=== PATIENT | male | born 1975 | race African-American/Black ===

== ENCOUNTER 2016-08-26 00:25 | Inpatient (IN) | payer OTHER ==
[~2016-08-26] VITALS: Ht 179.1 cm; Wt 100.8 kg
[2016-08-26 01:03] LABS: BASO % 0 % (0-3); EOS % 4 % (0-3); HEMATOCRIT 40.8 % (39.0-53.0); HEMOGLOBIN 13.6 g/dL (13.0-17.5); LYMPH # 2.6 x10^3/uL (1.0-4.8); LYMPH % 39 % (24-48); MEAN CORPUSCULAR HEMOGLOBIN 29 pg (25-35); MEAN CORPUSCULAR HGB CONC 33 g/dL (31-37); MEAN CORPUSCULAR VOLUME 86 fL (79-100); MONO % 11 % (0-9); NEUT % 46 % (31-73); PLATELET COUNT 257 x10^3/uL (140-400); RED BLOOD COUNT 4.73 x10^6/uL (4.30-5.70); RED CELL DISTRIBUTION WIDTH 13.4 % (11.5-14.5); WHITE BLOOD COUNT 6.6 x10^3/uL (4.0-11.0)
[2016-08-26 01:10] LABS: BARBITURATES NEG (NEG); BENZODIAZEPINES NEG (NEG); CANNABINOIDS NEG (NEG); COCAINE NEG (NEG); METHADONE NEG (NEG); OPIATES NEG (NEG); PHENCYCLIDINE NEG (NEG)
[2016-08-26 01:13] LABS: CALCIUM 9.3 mg/dL (8.5-10.1); CREATININE 0.9 mg/dL (0.7-1.3); ETHANOL, URINE NEG (NEG); GFR 111.4
[2016-08-26] MEDS ORDERED: ACETAMINOPHEN 325 MG TABLET. PO PRN (01:15)
[2016-08-26] MEDS ORDERED: ONDANSETRON PF 4 MG/2 ML VIAL. IV PRN ×2 (01:15→09:05)
--- NOTE | 2016-08-26 01:17 | PHYS DOC ---
Past Medical History Past Medical History: Asthma, Bronchitis Past Surgical History: Other Additional Past Surgical Histo: left foot Alcohol Use: Occasionally Drug Use: Cocaine, Marijuana Adult General Chief Complaint Chief Complaint: OVERDOSE HPI HPI Patient is a 41 year old male who presents from [facility] for suicidal ingestion of #22 50mg hydroxyzine and #22 20mg Celexa that occurred this evening prior to 2300. He took these medications to try to kill himself. He currently complains of some lightheadedness and being sleepy. He otherwise denies numbness, tingling, weakness, headache, chest pain, palpitations, dyspnea , abdominal pain, nausea or vomiting or fever or chills, diarrhea. Review of Systems Review of Systems Constitutional: Denies fever or chills [] Eyes: Denies change in visual acuity, redness, or eye pain [] HENT: Denies nasal congestion or sore throat [] Respiratory: Denies cough or shortness of breath [] Cardiovascular: No additional information not addressed in HPI [] GI: Denies abdominal pain, nausea, vomiting, bloody stools or diarrhea [] : Denies dysuria or hematuria [] Musculoskeletal: Denies back pain or joint pain [] Integument: Denies rash or skin lesions [] Neurologic: Denies headache, focal weakness or sensory changes [] Endocrine: Denies polyuria or polydipsia [] Current Medications Current Medications Allergies Allergies Physical Exam Physical Exam Constitutional: Well developed, well nourished, no acute distress, non-toxic appearance. [] HENT: Normocephalic, atraumatic, bilateral external ears normal, oropharynx moist, no oral exudates, nose normal. [] Eyes: PERRLA, EOMI, conjunctiva normal, no discharge. [] Neck: Normal range of motion, no tenderness, suppler. [] Cardiovascular:Heart rate regular rhythm [] Lungs & Thorax: Bilateral breath sounds clear to auscultation [] Abdomen: Bowel sounds normal, soft, no tenderness. [] Skin: Warm, dry, no erythema, no rash. [] Back: Normal range of motion. [] Extremities: No tenderness, ROM intact, no edema. [] Neurologic: Alert and oriented X 3, normal motor function, normal sensory function, no focal deficits noted, cranial nerves II through XII intact. [] Psychologic: Affect normal, judgement normal, mood normal. [] Current Patient Data Vital Signs Vital Signs Date Time Temp Pulse Resp B/P Pulse Ox O2 Delivery O2 Flow Rate FiO2 08/26/16 00:45 54 16 132/70 97 Room Air 08/26/16 00:25 98.0 98.0 Lab Values Laboratory Tests Test 08/26/16 00:47 White Blood Count 6.6x10^3/uL (4.0-11.0) Red Blood Count 4.73x10^6/uL (4.30-5.70) Hemoglobin 13.6g/dL (13.0-17.5) Hematocrit 40.8% (39.0-53.0) Mean Corpuscular Volume 86fL (79-100) Mean Corpuscular Hemoglobin 29pg (25-35) Mean Corpuscular Hemoglobin Concent 33g/dL (31-37) Red Cell Distribution Width 13.4% (11.5-14.5) Platelet Count 257x10^3/uL (140-400) Neutrophils (%) (Auto) 46% (31-73) Lymphocytes (%) (Auto) 39% (24-48) Monocytes (%) (Auto) 11% (0-9) H Eosinophils (%) (Auto) 4% (0-3) H Basophils (%) (Auto) 0% (0-3) Neutrophils # (Auto) 3.0x10^3uL (1.8-7.7) Lymphocytes # (Auto) 2.6x10^3/uL (1.0-4.8) Monocytes # (Auto) 0.7x10^3/uL (0.0-1.1) Eosinophils # (Auto) 0.3x10^3/uL (0.0-0.7) Basophils # (Auto) 0.0x10^3/uL (0.0-0.2) Sodium Level 138mmol/L (136-145) Potassium Level 4.0mmol/L (3.5-5.1) Chloride Level 107mmol/L (98-107) Carbon Dioxide Level 23mmol/L (21-32) Anion Gap 8 (6-14) Blood Urea Nitrogen 10mg/dL (8-26) Creatinine 0.9mg/dL (0.7-1.3) Estimated GFR (Cockcroft-Gault) 111.4 Glucose Level 101mg/dL (70-99) H Calcium Level 9.3mg/dL (8.5-10.1) Magnesium Level 2.4mg/dL (1.8-2.4) Salicylates Level < 2.8mg/dL (2.8-20.0) L Salicylate Last Dose Date Unk Salicylate Last Dose Time Unk Urine Opiates Screen Neg (NEG) Urine Methadone Screen Neg (NEG) Acetaminophen Level < 2mcg/ml (10-30) L Acetaminophen Last Dose Date Unk Acetaminophen Last Dose Time Unk Urine Barbiturates Neg (NEG) Urine Phencyclidine Screen Neg (NEG) Urine Amphetamine/Methamphetamine Neg (NEG) Urine Benzodiazepines Screen Neg (NEG) Urine Cocaine Screen Neg (NEG) Urine Cannabinoids Screen Neg (NEG) Urine Ethyl Alcohol Neg (NEG) Laboratory Tests 08/26/16 00:47 Laboratory Tests 08/26/16 00:47 EKG EKG EKG as interpreted by me as normal sinus rhythm, rate 53, no ST-T changes, P-R 252, QTC 419, no ectopy Course & Med Decision Making Course & Med Decision Making Pertinent Labs and Imaging studies reviewed. (See chart for details) Poison control recommend supportive care at this time and observation. Will admit for further observation. Laboratory evaluation is unremarkable. Discussed case with Dr. Roche, who will admit. Dragon Disclaimer Dragon Disclaimer This electronic medical record was generated, in whole or in part, using a voice recognition dictation system. Departure Departure Impression: Primary Impression: Intentional overdose of drug in tablet form Disposition: ADMITTED INPATIENT Condition: STABLE Referrals: UNKNOWN PCP NAME (PCP) Abbe COBB MD Aug 26, 2016 01:17
[2016-08-26 02:30] VITALS: BP 107/70
--- NOTE | 2016-08-26 06:17 | EKG ---
[facility] [address] [place] [address] Test Date: 2016-08-26 Test Time: 00:39:28 Pat Name: CAM LAUREN Department: Room: Gender: M Hand Stripper: : 1975 Requested By: Abbe COBB Order Number: [id number] Reading MD: Measurements Intervals [place] Rate: 53 P: 34 [place]: 252 QRS: 25 QRSD: 84 T: 36 QT: 444 QTc: 419 Interpretive Statements SINUS RHYTHM PROLONGED OH INTERVAL RI6.01 No previous ECG available for comparison
[2016-08-26 07:00] VITALS: BP 120/71
[2016-08-26] MEDS ORDERED: IBUPROFEN 600 MG TABLET. PO PRN (09:15)
[2016-08-26] MEDS ORDERED: TAMS0.4C2 PO (09:35)
[2016-08-26] MEDS ORDERED: CITA20TA5 PO (09:35)
[2016-08-26] MEDS ORDERED: AMOX500C PO (09:35)
[2016-08-26] MEDS ORDERED: HYDR50TA PO (09:35)
--- NOTE | 2016-08-26 10:54 | PDOC1 ---
History and Physical Date of Admission Date of Admission DATE: 08/26/16 TIME: 10:49 Identification/Chief Complaint Chief Complaint suicide attempt by OD Source Source: Caregiver, Chart review, Patient History of Present Illness History of Present Illness 41 y./o AA male, inmate, first attempt of suicide, Ingested 15 pills of celexa and 22 pills hydroxyzine which he claims are his meds. ahs been on celexa x 6 mos, Appears drowsy but hemodynamically stable and EKG does not show any prolonged intervals. Ate reg tray, ate the whole tray then felt nauseated, now has a bucket at bedside, Does not want me to downgrade his diet, Claims first attempt, he "wanted to get out" Sitter at bedside, appears drowsy but not in distress Denies co ingestion with any other substances ie alcohol, recreational drugs Past Medical History Psych: Depression Past Surgical History Past Surgical History: No pertinent history Family History Family History: Family History Unknown Social History Smoke: No ALCOHOL: none Drugs: None Current Problem List Problem List Problems Medical Problems: (1) Intentional overdose of drug in tablet form Status: Acute Problems: Current Medications Current Medications Current Medications Ondansetron HCl (Zofran) 4 mg PRN Q8HRS PRN IV NAUSEA/VOMITING; Start 08/26/16 at 01:15; Stop 08/26/16 at 09:06; Status DC Acetaminophen (Tylenol) 650 mg PRN Q4HRS PRN PO FEVER; Start 08/26/16 at 01:15; Stop 08/27/16 at 01:14 Ondansetron HCl (Zofran) 4 mg PRN Q6HRS PRN IV NAUSEA/VOMITING; Start 08/26/16 at 09:05 Ibuprofen (Motrin) 600 mg PRN Q6HRS PRN PO INFLAMMATION; Start 08/26/16 at 09:15 Active Scripts Active Reported Tamsulosin Hcl 0.4 Mg Cap.er.24h 0.4 Mg PO Q12HR Hydroxyzine Hcl 50 Mg Tablet 100 Mg PO QHS Citalopram Hbr (Citalopram Hydrobromide) 20 Mg Tablet 1 Tab PO QHS Amoxicillin 500 Mg Capsule 1 Cap PO BID Allergies Allergies: Coded Allergies: pork derived (porcine) (Verified Allergy, Unknown, 08/26/16) ROS Review of System drowsy, nauseated, no abd pain, diarrhea, no cp, soa Physical Exam General: No acute distress, Other (drowsy) HEENT: Atraumatic, EOMI Lungs: Clear to auscultation, Normal air movement Heart: S1S2, RRR, no thrills, no rubs, no gallops Cardiovascular: S1, S2 Breasts: Normal Abdomen: Normal bowel sounds, Soft, No tenderness, No hepatosplenomegaly, No masses Male Genitals Exam: normal genitalia, normal prostate PELVIC: Nml ext genitalia Extremities: No clubbing, No cyanosis, No edema, Normal pulses, No tenderness/ swelling Skin: No rashes, No breakdown, No significant lesion Neuro: Normal gait, Normal speech, Strength at 5/5 X4 ext, Normal tone, Sensation intact, Cranial nerves 3-12 NL, Reflexes 2+ Psych/Mental Status: Mental status NL, Mood NL Vitals Vitals Vital Signs Date Time Temp Pulse Resp B/P Pulse Ox O2 Delivery O2 Flow Rate FiO2 08/26/16 07:00 97.9 55 17 120/71 98 Room Air 97.9 Labs Labs Laboratory Tests Test 08/26/16 00:47 White Blood Count 6.6x10^3/uL (4.0-11.0) Red Blood Count 4.73x10^6/uL (4.30-5.70) Hemoglobin 13.6g/dL (13.0-17.5) Hematocrit 40.8% (39.0-53.0) Mean Corpuscular Volume 86fL (79-100) Mean Corpuscular Hemoglobin 29pg (25-35) Mean Corpuscular Hemoglobin Concent 33g/dL (31-37) Red Cell Distribution Width 13.4% (11.5-14.5) Platelet Count 257x10^3/uL (140-400) Neutrophils (%) (Auto) 46% (31-73) Lymphocytes (%) (Auto) 39% (24-48) Monocytes (%) (Auto) 11% (0-9) Eosinophils (%) (Auto) 4% (0-3) Basophils (%) (Auto) 0% (0-3) Neutrophils # (Auto) 3.0x10^3uL (1.8-7.7) Lymphocytes # (Auto) 2.6x10^3/uL (1.0-4.8) Monocytes # (Auto) 0.7x10^3/uL (0.0-1.1) Eosinophils # (Auto) 0.3x10^3/uL (0.0-0.7) Basophils # (Auto) 0.0x10^3/uL (0.0-0.2) Sodium Level 138mmol/L (136-145) Potassium Level 4.0mmol/L (3.5-5.1) Chloride Level 107mmol/L (98-107) Carbon Dioxide Level 23mmol/L (21-32) Anion Gap 8 (6-14) Blood Urea Nitrogen 10mg/dL (8-26) Creatinine 0.9mg/dL (0.7-1.3) Estimated GFR (Cockcroft-Gault) 111.4 Glucose Level 101mg/dL (70-99) Calcium Level 9.3mg/dL (8.5-10.1) Magnesium Level 2.4mg/dL (1.8-2.4) Salicylates Level < 2.8mg/dL (2.8-20.0) Salicylate Last Dose Date Unk Salicylate Last Dose Time Unk Urine Opiates Screen Neg (NEG) Urine Methadone Screen Neg (NEG) Acetaminophen Level < 2mcg/ml (10-30) Acetaminophen Last Dose Date Unk Acetaminophen Last Dose Time Unk Urine Barbiturates Neg (NEG) Urine Phencyclidine Screen Neg (NEG) Urine Amphetamine/Methamphetamine Neg (NEG) Urine Benzodiazepines Screen Neg (NEG) Urine Cocaine Screen Neg (NEG) Urine Cannabinoids Screen Neg (NEG) Urine Ethyl Alcohol Neg (NEG) Laboratory Tests Test 08/26/16 00:47 White Blood Count 6.6x10^3/uL (4.0-11.0) Red Blood Count 4.73x10^6/uL (4.30-5.70) Hemoglobin 13.6g/dL (13.0-17.5) Hematocrit 40.8% (39.0-53.0) Mean Corpuscular Volume 86fL (79-100) Mean Corpuscular Hemoglobin 29pg (25-35) Mean Corpuscular Hemoglobin Concent 33g/dL (31-37) Red Cell Distribution Width 13.4% (11.5-14.5) Platelet Count 257x10^3/uL (140-400) Neutrophils (%) (Auto) 46% (31-73) Lymphocytes (%) (Auto) 39% (24-48) Monocytes (%) (Auto) 11% (0-9) Eosinophils (%) (Auto) 4% (0-3) Basophils (%) (Auto) 0% (0-3) Neutrophils # (Auto) 3.0x10^3uL (1.8-7.7) Lymphocytes # (Auto) 2.6x10^3/uL (1.0-4.8) Monocytes # (Auto) 0.7x10^3/uL (0.0-1.1) Eosinophils # (Auto) 0.3x10^3/uL (0.0-0.7) Basophils # (Auto) 0.0x10^3/uL (0.0-0.2) Sodium Level 138mmol/L (136-145) Potassium Level 4.0mmol/L (3.5-5.1) Chloride Level 107mmol/L (98-107) Carbon Dioxide Level 23mmol/L (21-32) Anion Gap 8 (6-14) Blood Urea Nitrogen 10mg/dL (8-26) Creatinine 0.9mg/dL (0.7-1.3) Estimated GFR (Cockcroft-Gault) 111.4 Glucose Level 101mg/dL (70-99) Calcium Level 9.3mg/dL (8.5-10.1) Magnesium Level 2.4mg/dL (1.8-2.4) Salicylates Level < 2.8mg/dL (2.8-20.0) Salicylate Last Dose Date Unk Salicylate Last Dose Time Unk Urine Opiates Screen Neg (NEG) Urine Methadone Screen Neg (NEG) Acetaminophen Level < 2mcg/ml (10-30) Acetaminophen Last Dose Date Unk Acetaminophen Last Dose Time Unk Urine Barbiturates Neg (NEG) Urine Phencyclidine Screen Neg (NEG) Urine Amphetamine/Methamphetamine Neg (NEG) Urine Benzodiazepines Screen Neg (NEG) Urine Cocaine Screen Neg (NEG) Urine Cannabinoids Screen Neg (NEG) Urine Ethyl Alcohol Neg (NEG) VTE Prophylaxis Ordered VTE Prophylaxis Devices: Yes VTE Pharmacological Prophylaxi: Yes Assessment/Plan Assessment/Plan 1. Suicide attempt, first time 2. SSRI and hydroxyzine OD, intentional 3. In mate PLAN: SW for PAT referral If nausea persists, downgrade diet Likely dc lily once cleared by PAT tem cont 1:1 for now Keep on tele SÁNCHEZ CARDENAS MD Aug 26, 2016 10:54
[2016-08-26 11:00] VITALS: BP 103/60
[2016-08-26 15:00] VITALS: BP 110/65
[2016-08-26 19:17] VITALS: BP 129/73
[2016-08-26 23:25] VITALS: BP 141/72
[2016-08-27 03:46] VITALS: BP 132/71
[2016-08-27 07:00] VITALS: BP 151/84
--- NOTE | 2016-08-27 08:22 | ACF ---
Admit Criteria Forms Admit Criteria Forms Admit Criteria Forms SUBSTANCE ABUSE Clinical Indications for Admission to Inpatient Care (Place 'X' for any and all applicable criteria): Admission is indicated due to ANY ONE of the following(1)(2)(3)(4)(5): [ ]I. Delirium due to alcohol or sedative A withdrawal B ( Also use Delirium Criteria as appropriate)1,6,7 [ ]II. Alcohol or sedative withdrawal with high-risk indicator as manifested by ALL of the following1,3,6,7 [ ]a) Signs of withdrawal as indicated by ANY ONE of the following: [ ]i) Heart rate greater than 100 beats per minute [ ]ii) Nausea or vomiting [ ]iii) Other physical signs of alcohol or sedative withdrawal [ ]iv) Tremor [ ](v) Increased perspiration [ ]b) Elevated risk due to a historical or comorbid factor as indicated by ANY ONE of the following: [ ]i) History of delirium due to alcohol or sedative withdrawal [ ]ii) History of repetitive seizures due to alcohol or sedative withdrawal C [ ]iii) Intrinsic seizure disorder (epilepsy) [ ]iv) [ ]v) Comorbid medical condition that can be dangerously destabilized by alcohol or sedative withdrawal (eg, severe cardiac disease) [ ]III. Severe alcohol or sedative withdrawal that is unmanageable at lower level of care, as manifested by ALL of the following1,3,6,7 [ ]a) Marked signs of withdrawal as indicated by ANY ONE of the following: [ ]i) Heart rate greater than 120 beats per minute [ ]ii) Vomiting [ ]iii) Grossly visible tremor [ ]iv) Profuse perspiration [ ]v) Temperature greater than 38.3 degrees C (101 degrees F) [ ]vi) Other marked physical signs of alcohol or sedative withdrawal [ ]b) Signs of withdrawal which require inpatient treatment as indicated by ANY ONE of the following: [ ]i) Inadequate response to pharmacotherapy in emergency department or other appropriate lower level of care [ ]ii) Lower level of care not feasible or appropriate (eg, unavailable or inappropriate to patient condition or treatment history) [ ]IV. Severely complicated opioid withdrawal that requires [id number] care as manifested by ALL of the following 1,4,7,11 [ ]a) Vomiting or diarrhea due to opioid withdrawal [ ]b) Marked dehydration or electrolyte abnormality that cannot be corrected (to near normal) in an emergency department or other ambulatory setting (eg, serum K<2.5 mEq/L , serum Na <130 mEq/L [ ]V. Acute toxicity or instability from substance use requiring inpatient care (eg, altered mental status, respiratory depression) that has had inadequate response to, or is judged inappropriate for, treatment at lower level of care (eg, emergency department, observation care) [X]. Other inpatient medical or psychiatric care is needed due to risk or comorbidity as indicated by ALL of the following(18): [X]a) Treatment is needed because of patient risk due to ANY ONE of the following: [ ]i) Medical condition (eg, severe cardiac disease) that requires 24-hour monitoring and treatment due to danger of destabilization by alcohol or sedative withdrawal is present [X]ii) Imminent danger to self is present due to ANY ONE of the following(19)(20)(21): [ ]1) Imminent risk for recurrence of Suicide attempt or act of serious Harm to self is present as indicated by ALL of the following: [ ]A. There has been very recent Suicide attempt or deliberate act of serious Harm to self. [ ]B. There has not been Sufficient relief of the factors that precipitated the attempt or act. [X]2) Current plan for suicide or serious Harm to self is present. [ ]3) Command auditory hallucinations for suicide or serious Harm to self are present. [ ]4) Patient has persistent Thoughts of suicide or serious Harm to self that cannot be adequately monitored at lower level of care due to ANY ONE of the following[E]: [ ]A. Insufficient behavioral care is available to meet patient needs (such as required provider or lower level facility is not available). [ ]B. Patient characteristics such as high impulsivity or unreliability are present. [ ]C. Environment does not support recovery. [ ]D. Ready access to lethal means [ ]iii) Imminent danger to others is present due to ANY ONE of the following(19)(23)(24): [ ]1) Imminent risk for recurrence of attempt to seriously Harm another is present as indicated by ALL of the following: [ ]A. There has been very recent attempt to seriously Harm another. [ ]B. There has not been Sufficient relief of factors that precipitated the attempt or act. [ ]2) Current plan for homicide or serious Harm to another is present. [ ]3) Command auditory hallucinations or paranoid delusions contributing to risk for homicide or serious Harm to another are present. [ ]4) Patient has persistent thoughts of homicide or serious Harm to another that cannot be adequately monitored at lower level of care because of ANY ONE of the following[E]: [ ]A. Insufficient behavioral care is available to meet patient needs (such as required provider or lower level facility is not available). [ ]B. High impulsivity or unreliability is present. [ ]C. Environment does not support recovery. [ ]D. Ready access to lethal means [ ]iv) Severe dysfunction in daily living related to substance use disorder as indicated by ANY ONE of the following(33): [ ]a) Extreme deterioration in social interactions (eg , threatening behaviors with little or no provocation) [ ]b) Complete withdrawal from all social interactions [ ]c) Complete neglect of self-care with associated impairment in physical status [ ]d) Extreme disruption in vegetative function (eg, life-sustaining functions such as eating) [ ]e) Complete inability to maintain any appropriate aspect of personal responsibility in any adult roles (eg, occupational, parental ) [ ]v) Other emotional, behavioral, or cognitive symptoms of sufficient severity to preclude ability to engage in recovery without 24-hour monitoring and treatment are present. [ ]vi) Patient requires monitoring due to substance use in combination with medical, psychiatric, or environmental factors that prevent adequate management at lower level of care as indicated by ALL of the following: [ ]1) Significant substance use effects, medical conditions, or psychiatric comorbidities are present as indicated by ANY ONE of the following [ ]A. Substance toxicity or withdrawal requires medical monitoring. [ ]B. Medical comorbidity requires medical monitoring for destabilization due to alcohol or sedative withdrawal. [ ]C. Emotional, behavioral, or cognitive symptoms of sufficient severity to limit or preclude ability to engage in treatment are present. [ ]2) Conditions, barriers, or environmental factors preventing treatment at lower level of care are present as indicated by ANY ONE of the following: [ ]A. Psychiatric comorbidity or opposition to treatment requires 24-hour setting to ensure adherence with medical treatment or adequate motivating interventions. [ ]B. Severe behavioral problems (eg, escalating relapse behaviors, acute psychiatric or substance use crisis, inability to recognize signs and symptoms of relapse ) require 24-hour setting for relapse prevention.[F] [ ]C. Living environment outside of 24-hour setting prevents recovery (eg, abuse, victimization, patient inability to cope). [X]b Treatment situation and needs are appropriate for inpatient level ( instead of using lower level of care) as indicated by ANY ONE of the following( 25)(26)(27): [ ]i) Patient is unwilling to participate voluntarily and requires treatment (eg, legal commitment) in involuntary unit.(23) [X]ii) Voluntary treatment at lower level is not feasible (eg, lower level care unavailable or inappropriate for patient condition). [ ]iii) Physical restraint, seclusion, or other involuntary control is needed (eg, actively violent patient for whom treatment in an involuntary unit is deemed necessary in accord with applicable medical and legal criteria).(23) [ ]iv) [id number] medical or nursing care to address symptoms and initiate interventions is required; specific need is identified. Extended stay beyond goal length of stay may be needed for: [ ]a) Onset of delirium [ ]b) Recurrent seizures [ ]c) Persistent severe alcohol or sedative withdrawal [ ]d) Persistent dangerous behavior The original [employer] content created by [employer] has been revised. The portions of the content which have been revised are identified through the use of italic text or in bold, and [email or web address] has neither reviewed nor approved the modified material. All other unmodified content is copyright [employer]. Please see references footnoted in the original [employer] edition 2016 PILLO ELDER Aug 27, 2016 08:22
[2016-08-27] MEDS ORDERED: ONDANSETRON ODT 4 MG TAB.RAPDIS. PO PRN (09:30)
[2016-08-27 10:47] VITALS: BP 151/84
[2016-08-27] MEDS ORDERED: ACETAMINOPHEN 500 MG TABLET PO PRN (12:00)
--- NOTE | 2016-08-27 12:05 | PDOC ---
PROGRESS NOTES Chief Complaint Chief Complaint 1. Suicide attempt, first time 2. SSRI and hydroxyzine OD, intentional 3. Incarcerated 4. NAusea History of Present Illness History of Present Illness NAsueated today Almost vomited Tele ok since admission 1:1 sitter at bedside Paolo NELSON yesterday - cant do PAT assessment as he will go back to [facility] upon dc Lost his IV line last night PLAN: Makenzie PO - wishes to be off IV line for now Agreed to liquid diet Hold Dc I expect to see some nausea bec of his OD BUt if sxs become more severe, might need to check KUB, upper gI r.o obstrxn - BUT HIGHLY doubt this Dw RN, pt and sitter Vitals Vitals Vital Signs Date Time Temp Pulse Resp B/P Pulse Ox O2 Delivery O2 Flow Rate FiO2 08/27/16 10:47 98.0 67 20 151/84 94 Room Air 98.0 Physical Exam General: No acute distress, Other (drowsy) Abdomen: Normal bowel sounds, Soft, No tenderness, No hepatosplenomegaly, No masses Extremities: No clubbing, No cyanosis, No edema, Normal pulses, No tenderness/ swelling Skin: No rashes, No breakdown, No significant lesion Review of Systems Review of Systems nasuea, no emesis, no diarrhea, cp, coa Assessment and Plan Assessmemt and Plan Problems Medical Problems: (1) Intentional overdose of drug in tablet form Status: Acute (2) Suicide by drug overdose Status: Acute Problems: Comment Review of Relevant I have reviewed the following items charmaine (where applicable) has been applied. Labs Laboratory Tests Test 08/26/16 00:47 08/26/16 05:00 White Blood Count 6.6x10^3/uL (4.0-11.0) Red Blood Count 4.73x10^6/uL (4.30-5.70) Hemoglobin 13.6g/dL (13.0-17.5) Hematocrit 40.8% (39.0-53.0) Mean Corpuscular Volume 86fL (79-100) Mean Corpuscular Hemoglobin 29pg (25-35) Mean Corpuscular Hemoglobin Concent 33g/dL (31-37) Red Cell Distribution Width 13.4% (11.5-14.5) Platelet Count 257x10^3/uL (140-400) Neutrophils (%) (Auto) 46% (31-73) Lymphocytes (%) (Auto) 39% (24-48) Monocytes (%) (Auto) 11% (0-9) Eosinophils (%) (Auto) 4% (0-3) Basophils (%) (Auto) 0% (0-3) Neutrophils # (Auto) 3.0x10^3uL (1.8-7.7) Lymphocytes # (Auto) 2.6x10^3/uL (1.0-4.8) Monocytes # (Auto) 0.7x10^3/uL (0.0-1.1) Eosinophils # (Auto) 0.3x10^3/uL (0.0-0.7) Basophils # (Auto) 0.0x10^3/uL (0.0-0.2) Sodium Level 138mmol/L (136-145) Potassium Level 4.0mmol/L (3.5-5.1) Chloride Level 107mmol/L (98-107) Carbon Dioxide Level 23mmol/L (21-32) Anion Gap 8 (6-14) Blood Urea Nitrogen 10mg/dL (8-26) Creatinine 0.9mg/dL (0.7-1.3) Estimated GFR (Cockcroft-Gault) 111.4 Glucose Level 101mg/dL (70-99) Calcium Level 9.3mg/dL (8.5-10.1) Magnesium Level 2.4mg/dL (1.8-2.4) Salicylates Level < 2.8mg/dL (2.8-20.0) Salicylate Last Dose Date Unk Salicylate Last Dose Time Unk Urine Opiates Screen Neg (NEG) Urine Methadone Screen Neg (NEG) Acetaminophen Level < 2mcg/ml (10-30) Acetaminophen Last Dose Date Unk Acetaminophen Last Dose Time Unk Urine Barbiturates Neg (NEG) Urine Phencyclidine Screen Neg (NEG) Urine Amphetamine/Methamphetamine Neg (NEG) Urine Benzodiazepines Screen Neg (NEG) Urine Cocaine Screen Neg (NEG) Urine Cannabinoids Screen Neg (NEG) Urine Ethyl Alcohol Neg (NEG) Nasal Screen MRSA (PCR) Negative (Negative) Medications Current Medications Ondansetron HCl (Zofran) 4 mg PRN Q8HRS PRN IV NAUSEA/VOMITING; Start 08/26/16 at 01:15; Stop 08/26/16 at 09:06; Status DC Acetaminophen (Tylenol) 650 mg PRN Q4HRS PRN PO FEVER; Start 08/26/16 at 01:15; Stop 08/27/16 at 01:14; Status DC Ondansetron HCl (Zofran) 4 mg PRN Q6HRS PRN IV NAUSEA/VOMITING; Start 08/26/16 at 09:05; Stop 08/27/16 at 09:22; Status DC Ibuprofen (Motrin) 600 mg PRN Q6HRS PRN PO INFLAMMATION Last administered on 08:01; Start 08/26/16 at 09:15 Ondansetron HCl (Zofran Odt) 4 mg PRN Q6HRS PRN PO NAUSEA/VOMITING Last administered on 08/27/16 10:11; Start 08/27/16 at 09:30 Active Scripts Active Reported Tamsulosin Hcl 0.4 Mg Cap.er.24h 0.4 Mg PO Q12HR Hydroxyzine Hcl 50 Mg Tablet 100 Mg PO QHS Citalopram Hbr (Citalopram Hydrobromide) 20 Mg Tablet 1 Tab PO QHS Amoxicillin 500 Mg Capsule 1 Cap PO BID Vitals/I & O Vital Sign - Last 24 Hours 08/26/16 08/26/16 08/26/16 08/26/16 15:00 19:17 20:03 23:25 Temp 98.4 97.5 97.8 98.4 97.5 97.8 Pulse 58 67 66 Resp 18 18 18 B/P 110/65 129/73 141/72 Pulse Ox 96 97 96 O2 Delivery Room Air Room Air Room Air Room Air 08/27/16 08/27/16 08/27/16 03:46 07:00 10:47 Temp 98.1 98.0 98.0 98.1 98.0 98.0 Pulse 61 70 67 Resp 20 19 20 B/P 132/71 151/84 151/84 Pulse Ox 94 95 94 O2 Delivery Room Air Room Air Room Air Intake and Output 08/26/16 08/26/16 08/27/16 15:00 23:00 07:00 Intake Total 2350 ml Balance 2350 ml SÁNCHEZ CARDENAS MD Aug 27, 2016 12:05
[2016-08-27 14:39] VITALS: BP 147/81
[2016-08-27 19:00] VITALS: BP 155/85
[2016-08-27 23:00] VITALS: BP 142/95
[2016-08-28 03:00] VITALS: BP 144/88
[2016-08-28 07:11] VITALS: BP 146/96
[2016-08-28 10:19] VITALS: BP 138/89
--- NOTE | 2016-08-28 12:43 | PDOC3 ---
Discharge Summary Visit Information Date of Admission: Aug 26, 2016 Date of Discharge: Aug 28, 2016 Admitting Diagnosis Comment: 1. Suicide attempt, first time 2. SSRI and hydroxyzine OD, intentional 3. Incarcerated 4. NAusea sec to OD Final Diagnosis Problems Medical Problems: (1) Intentional overdose of drug in tablet form Status: Acute (2) Suicide by drug overdose Status: Acute Brief Hospital Course Allergies Allergies Coded Allergies Type Severity Reaction Last Updated Verified pork derived (porcine) Allergy Unknown 08/26/16 Yes Vital Signs Vital Signs Date Time Temp Pulse Resp B/P Pulse Ox O2 Delivery O2 Flow Rate FiO2 08/28/16 10:19 98.0 62 20 138/89 98 Room Air 98.0 Brief Hospital Course Mr. Berg is a 41 old AA male incarcerated took celexa and hydroxyzine pills in jail (his home med) as attempt to suicide. First time, NO EKG changes, HAd some nausea following days, but no emesis, Better, Stable to dc back to jail, Educated and counselled Pt seen and examined COnsults: none Proc none dc 32 mins > 50% educan and counselling, coordinating dc Discharge Information Condition at Discharge: Improved, Stable Disposition/Orders: Other ([facility]) Scheduled Amoxicillin (Amoxicillin) 1 CAP PO BID (Reported) Citalopram Hydrobromide (Citalopram Hbr) 1 TAB PO QHS (Reported) Hydroxyzine Hcl (Hydroxyzine Hcl) 100 MG PO QHS (Reported) Tamsulosin Hcl (Tamsulosin Hcl) 0.4 MG PO Q12HR (Reported) SÁNCHEZ CARDENAS MD Aug 28, 2016 12:43
== END 2016-08-28 15:30 | DRG 917 ==
LOC: ER 00:25 → EEVIPCON 00:25 → 2 SOUTH 01:00
PROVIDERS: ADMIT Internal Medicine; ATTEND Internal Medicine
DX: T43.592A Poisoning by other antipsychotics and neuroleptics, intentional self-harm, initial encounter (principal); G92 Toxic encephalopathy; T43.222A Poisoning by selective serotonin reuptake inhibitors, intentional self-harm, initial encounter; J45.909 Unspecified asthma, uncomplicated; F14.90 Cocaine use, unspecified, uncomplicated; F32.9 Major depressive disorder, single episode, unspecified; Y92.148 Other place in prison as the place of occurrence of the external cause
CPT/HCPCS: 36415; 80048; 83735; 85027; 87641; 93005; G0481; G6038; J2405; Q0162; 80196

== ENCOUNTER 2016-09-09 00:09 | Emergency (ER) | payer OTHER ==
[~2016-09-09] VITALS: Ht 177.8 cm; Wt 100.7 kg
[~2016-09-09 00:09] MED LIST: AMOX500C PO; CITA20TA5 PO; HYDR50TA PO; TAMS0.4C2 PO
[2016-09-09] MEDS ORDERED: IV NORMAL SALINE 1000ML BAG 1,000 ML IV ONE ×2 (00:30→01:30)
[2016-09-09 01:04] LABS: BASO % 1 % (0-3); EOS % 4 % (0-3); HEMATOCRIT 40.1 % (39.0-53.0); HEMOGLOBIN 13.4 g/dL (13.0-17.5); LYMPH # 2.9 x10^3/uL (1.0-4.8); LYMPH % 40 % (24-48); MEAN CORPUSCULAR HEMOGLOBIN 29 pg (25-35); MEAN CORPUSCULAR HGB CONC 33 g/dL (31-37); MEAN CORPUSCULAR VOLUME 87 fL (79-100); MONO % 9 % (0-9); NEUT % 46 % (31-73); PLATELET COUNT 243 x10^3/uL (140-400); RED CELL DISTRIBUTION WIDTH 12.8 % (11.5-14.5); WHITE BLOOD COUNT 7.3 x10^3/uL (4.0-11.0)
[2016-09-09 01:13] LABS: BARBITURATES NEG (NEG); BENZODIAZEPINES NEG (NEG); CANNABINOIDS NEG (NEG); COCAINE NEG (NEG); METHADONE NEG (NEG); OPIATES NEG (NEG); PHENCYCLIDINE NEG (NEG)
[2016-09-09 01:19] LABS: ETHANOL, URINE NEG (NEG)
[2016-09-09 01:27] LABS: CALCIUM 9.1 mg/dL (8.5-10.1); CREATININE 1.1 mg/dL (0.7-1.3); GFR 88.4; POTASSIUM 3.7 mmol/L (3.5-5.1)
[2016-09-09 01:30] LABS: ETHANOL < 10 mg/dL (0-10)
--- NOTE | 2016-09-09 01:46 | PHYS DOC ---
Past Medical History Past Medical History: Asthma, Bipolar, Bronchitis Additional Past Medical Histor: adjustment disorder, prostate, suicide attempt Past Surgical History: Other Additional Past Surgical Histo: left foot Alcohol Use: Occasionally Drug Use: Cocaine, Marijuana Adult General Chief Complaint Chief Complaint: OVERDOSE HPI HPI This is a 40-year-old male coming from a correctional facility after he ingested approximately 10 Prozac and multiple hydroxyzine tablets in an attempt to take his life. Upon arrival, the patient is not altered in any way and does not have any specific complaints. He denies any chest pain or shortness of breath. He is able answer all my questions and follow my commands appropriately. Review of Systems Review of Systems Constitutional: Denies fever or chills [] Eyes: Denies change in visual acuity, redness, or eye pain [] HENT: Denies nasal congestion or sore throat [] Respiratory: Denies cough or shortness of breath [] Cardiovascular: No additional information not addressed in HPI [] GI: Denies abdominal pain, nausea, vomiting, bloody stools or diarrhea [] : Denies dysuria or hematuria [] Musculoskeletal: Denies back pain or joint pain [] Integument: Denies rash or skin lesions [] Neurologic: Denies headache, focal weakness or sensory changes [] Endocrine: Denies polyuria or polydipsia [] Current Medications Current Medications Current Medications Medications (Trade) Dose Ordered Sig/Makayla Start Time Stop Time Status Last Admin Dose Admin Sodium Chloride (Iv Sodium Chloride 0.9% 1000ml Bag) 1,000 ml @ 1,000 mls/hr 1X ONCE 09/09/16 01:30 09/09/16 02:29 DC 09/09/16 01:46 1,000 MLS/HR Allergies Allergies Allergies Coded Allergies Type Severity Reaction Last Updated Verified pork derived (porcine) Allergy Unknown 08/26/16 Yes Physical Exam Physical Exam Constitutional: Well developed, well nourished, no acute distress, non-toxic appearance. [] HENT: Normocephalic, atraumatic, bilateral external ears normal, oropharynx moist, no oral exudates, nose normal. [] Eyes: PERRLA, EOMI, conjunctiva normal, no discharge. [] Neck: Normal range of motion, no tenderness, supple, no stridor. [] Cardiovascular:Heart rate regular rhythm, no murmur [] Lungs & Thorax: Bilateral breath sounds clear to auscultation [] Abdomen: Bowel sounds normal, soft, no tenderness, no masses, no pulsatile masses. [] Skin: Warm, dry, no erythema, no rash. [] Back: No tenderness, no CVA tenderness. [] Extremities: No tenderness, no cyanosis, no clubbing, ROM intact, no edema. [] Neurologic: Alert and oriented X 3, normal motor function, normal sensory function, no focal deficits noted. [] Psychologic: Affect normal, judgement normal, mood normal. [] Current Patient Data Vital Signs Vital Signs Date Time Temp Pulse Resp B/P Pulse Ox O2 Delivery O2 Flow Rate FiO2 09/09/16 02:16 54 20 135/79 97 Room Air 09/09/16 00:13 98.0 98.0 Lab Values Laboratory Tests Test 09/09/16 00:45 White Blood Count 7.3x10^3/uL (4.0-11.0) Red Blood Count 4.60x10^6/uL (4.30-5.70) Hemoglobin 13.4g/dL (13.0-17.5) Hematocrit 40.1% (39.0-53.0) Mean Corpuscular Volume 87fL (79-100) Mean Corpuscular Hemoglobin 29pg (25-35) Mean Corpuscular Hemoglobin Concent 33g/dL (31-37) Red Cell Distribution Width 12.8% (11.5-14.5) Platelet Count 243x10^3/uL (140-400) Neutrophils (%) (Auto) 46% (31-73) Lymphocytes (%) (Auto) 40% (24-48) Monocytes (%) (Auto) 9% (0-9) Eosinophils (%) (Auto) 4% (0-3) H Basophils (%) (Auto) 1% (0-3) Neutrophils # (Auto) 3.3x10^3uL (1.8-7.7) Lymphocytes # (Auto) 2.9x10^3/uL (1.0-4.8) Monocytes # (Auto) 0.7x10^3/uL (0.0-1.1) Eosinophils # (Auto) 0.3x10^3/uL (0.0-0.7) Basophils # (Auto) 0.0x10^3/uL (0.0-0.2) Sodium Level 142mmol/L (136-145) Potassium Level 3.7mmol/L (3.5-5.1) Chloride Level 107mmol/L (98-107) Carbon Dioxide Level 26mmol/L (21-32) Anion Gap 9 (6-14) Blood Urea Nitrogen 14mg/dL (8-26) Creatinine 1.1mg/dL (0.7-1.3) Estimated GFR (Cockcroft-Gault) 88.4 Glucose Level 88mg/dL (70-99) Calcium Level 9.1mg/dL (8.5-10.1) Salicylates Level < 2.8mg/dL (2.8-20.0) L Salicylate Last Dose Date Salicylate Last Dose Time Urine Opiates Screen Neg (NEG) Urine Methadone Screen Neg (NEG) Acetaminophen Level < 2mcg/ml (10-30) L Acetaminophen Last Dose Date Acetaminophen Last Dose Time Urine Barbiturates Neg (NEG) Urine Phencyclidine Screen Neg (NEG) Urine Amphetamine/Methamphetamine Neg (NEG) Urine Benzodiazepines Screen Neg (NEG) Urine Cocaine Screen Neg (NEG) Urine Cannabinoids Screen Neg (NEG) Ethyl Alcohol Level < 10mg/dL (0-10) Urine Ethyl Alcohol Neg (NEG) Laboratory Tests 09/09/16 00:45 Laboratory Tests 09/09/16 00:45 EKG EKG EKG as interpreted by me shows a sinus bradycardia with a rate of 53 bpm. There is CO prolongation at 256 ms. There are no obvious ischemic findings. Radiology/Procedures Radiology/Procedures [] Course & Med Decision Making Course & Med Decision Making Pertinent Labs and Imaging studies reviewed. (See chart for details) This 40-year-old male who overdosed on Prozac and hydroxyzine will be observed in the department for several hours. A total 2 L IV normal saline will be administered. After being observed for several hours if he has no acute changes in his mental status he will be medically cleared to go back to his correctional facility for further evaluation for his ongoing suicidal ideation. His laboratory workup was unremarkable. She was observed in the department for nearly 3 hours with no change in mental status. His vital signs remained unchanged. Patient was given 2 L of IV normal saline. I counseled him that he will need to follow-up with his mental health services at his correctional facility for his ongoing suicidal ideation. He'll be discharged in the care of the correctional officers to return to his correctional facility for further evaluation and treatment. He is medically cleared from my standpoint. Poison control was notified about this patient and agreed with this plan. Dragon Disclaimer Dragon Disclaimer This electronic medical record was generated, in whole or in part, using a voice recognition dictation system. Departure Departure Impression: Primary Impression: Intentional overdose of drug in tablet form Additional Impression: Suicide attempt Disposition: 01 HOME, SELF-CARE Condition: STABLE Referrals: UNKNOWN PCP NAME (PCP) Patient Instructions: Overdose, Adult, Suicidal Feelings, How to Help Yourself Additional Instructions: Please follow up with your mental health professional for your suicidal thoughts. Return to the ER immediately if you develop any changes in behavior or develop any chest pain or difficulty breathing. Problem Qualifiers DAMASO MELLO DO Sep 09, 2016 01:46
[2016-09-09 02:16] VITALS: BP 135/79
--- NOTE | 2016-09-09 06:43 | EKG ---
[facility] [address] [place] [address] Test Date: 2016-09-09 Test Time: 00:39:23 Pat Name: CAM LAUREN Department: Room: Gender: M Material Hauler: : [id number] Requested By: DAMASO MELLO Order Number: [id number] Reading MD: Sheeba Garnett Measurements Intervals Avery Rate: 53 P: 34 AR: 256 QRS: 24 QRSD: 94 T: 36 QT: 434 QTc: 409 Interpretive Statements SINUS RHYTHM PROLONGED AR INTERVAL ABNORMAL ECG RI6.01 No previous ECG available for comparison Electronically Signed On 09-11-2016 17:14:56 CDT by Sheeba Garnett
== END 2016-09-09 02:38 | disposition home or self-care (01) ==
LOC: EEVIPCON 00:09 → ER 00:09
DX: T43.222A Poisoning by selective serotonin reuptake inhibitors, intentional self-harm, initial encounter (principal); T43.592A Poisoning by other antipsychotics and neuroleptics, intentional self-harm, initial encounter; J45.909 Unspecified asthma, uncomplicated; F31.9 Bipolar disorder, unspecified; F14.10 Cocaine abuse, uncomplicated; F12.10 Cannabis abuse, uncomplicated; Z91.018 Allergy to other foods; Y92.89 Other specified places as the place of occurrence of the external cause
CPT/HCPCS: 36415; 80048; 80305; 80320; 85027; 93005; 96360; 96361; 99285; G6038; J7030; G0480; G0481; 80196